=== PATIENT | female | born 1960 | race Caucasian/White ===

== ENCOUNTER 2019-12-22 05:52 | Observation (INO) | payer BC, OTHER ==
[2019-12-22] VITALS (7 sets, daily range): BP systolic 101–125; BP diastolic 52–67
[~2019-12-22] VITALS: Ht 165.1 cm; Wt 80.7 kg
[~2019-12-22 05:52] MED LIST: ASPIRIN325 MG PO; CELEBREX50 MG PO; HYDROCHLOROTHIA25 MG PO; LISINOPRIL5 MG PO; NORCO 7.5-3251 EACH PO; ULTRAM50 MG PO; VITAMIN C PO; VITAMIN D PO; WELLBUTRIN SR150 MG PO
[2019-12-22] MEDS ORDERED: GABAPENTIN 300 MG CAP ONE (07:17)
[2019-12-22] MEDS ORDERED: DEXAMETHASONE SOD PHOS 10 MG/1 ML VIAL ONE (07:17)
[2019-12-22] MEDS ORDERED: CELECOXIB 200 MG CAP ONE (07:17)
[2019-12-22] MEDS ORDERED: CEFAZOLIN SOD 1 GM/NS 50ML 100 ML IV ONE (07:18)
[2019-12-22] MEDS ORDERED: VITAMIN D PO (07:34)
[2019-12-22] MEDS ORDERED: Vitamin C PO (07:35)
[2019-12-22] MEDS ORDERED: Biotin PO (07:38)
[2019-12-22] MEDS ORDERED: Probiotic PO (07:38)
[2019-12-22] MEDS ORDERED: Ashwagandha PO (07:39)
[2019-12-22] MEDS ORDERED: Vitamin D3 PO (07:40)
[2019-12-22] MEDS ORDERED: ROPIVACAINE 246.25 MG, EPINEPHRINE HCL 1:1000 1ML 0.5 MG, CLONIDINE HCL 0.08 MG, KETORO... INJ ONE ×5 (08:00)
[2019-12-22] MEDS ORDERED: TRANEXAMIC ACID 1,000 MG/10 ML ML ONE (09:00)
[2019-12-22] MEDS ORDERED: SODIUM CHLORIDE 0.9% 500ML 500 ML ONE (09:00)
[2019-12-22] MEDS ORDERED: VANCOMYCIN HCL 1,000 MG ONE (09:00)
[2019-12-22] MEDS ORDERED: BACITRACIN 50,000 UNIT VIAL ONE (09:01)
[2019-12-22] MEDS ORDERED: ACETAMINOPHEN 650 MG SUPP PR PRN (10:45)
[2019-12-22] MEDS: SODIUM CHLORIDE 0.9% 1000ML 1,000 ML IV SCH ×2 (10:45→17:52)
[2019-12-22] MEDS ORDERED: DIPHENHYDRAMINE HCL INJ 50 MG/ML VIAL IV PRN (10:45)
[2019-12-22] MEDS ORDERED: KETOROLAC TROMETHAMINE 30 MG/ML VIAL IV PRN (10:45)
[2019-12-22] MEDS ORDERED: ONDANSETRON HCL INJ 2MG/ML 2ML 2 MG/ML VIAL IV PRN (10:45)
[2019-12-22] MEDS ORDERED: HYDROCODONE/APAP 5MG-325MG TAB PO PRN (10:45)
[2019-12-22] MEDS ORDERED: DOCUSATE SODIUM 100 MG CAP PO PRN (10:45)
[2019-12-22] MEDS ORDERED: FENTANYL CITRATE/PF 100MCG/2 ML INJ ONE (11:07)
--- NOTE | 2019-12-22 11:11 | Operative Report ---
DATE OF PROCEDURE: SURGEON: Clark Smith MD DYE WINCH OPERATOR: Arnulfo Robison, certified PA. PREOPERATIVE DIAGNOSIS: Osteoarthritis, left knee. POSTOPERATIVE DIAGNOSIS: Osteoarthritis, left knee. PROCEDURE: Left total knee arthroplasty. INDICATIONS: The patient is a 59-year-old lady, who was very active. She has advanced osteoarthritis of her left knee. She has failed extensive conservative management and would like to proceed with a left total knee replacement. She has been through a right knee replacement some years ago. The risks and benefits have been reviewed. She states she understands and wishes to proceed. PROCEDURE IN DETAIL: The patient was brought to the operating room and placed under general anesthetic. She received prophylactic antibiotics, a regional block and tranexamic acid in the holding area. Her left lower extremity was prepped and draped in a sterile manner. A preoperative time-out was performed. The extremity was exsanguinated and a proximal tourniquet was inflated to 300 mmHg. An anterior incision with a medial parapatellar arthrotomy was performed. Clear synovial fluid was removed from the joint. Soft tissue releases were performed to bring the knee up into flexion with the patella everted. Meniscal remnants, marginal osteophytes, and the cruciate ligaments were sacrificed. A [employer] knee system with ultracongruent tibial inserts were utilized. An extramedullary cutting guide was used to resect the proximal tibia. The cut was referenced off the least affected lateral compartment. The tibial base plate was a size 4. The central fin punch was impacted and attention was directed towards the distal femur. An intramedullary cutting guide was used to resect the distal femur in 6 degrees of valgus and rotation referencing off a combination of landmarks including Whitesides line, the epicondylar axis, and the posterior condyles. The femoral component was a size 5. There were some dense sclerotic bone in the medial aspect. The anterior and posterior cuts were made. Trial implant was placed. A 9 mm ultracongruent tibial insert was noted to have good stability in full extension and 90 degrees of flexion. The patella was resurfaced with a 29 mm x 9 mm patellar button. The thickness was checked before and after and was right at 23 mm. Patellar tracking was concentric. The trial implants were removed. Small drill holes were placed into the dense sclerotic bone of the medial femur. A 100 mL premixed pericapsular TORSTEN injection was placed into the surrounding soft tissue. The knee was thoroughly irrigated with a shower-tip pulsatile lavage. All bone cuts had been irrigated with a spray mixture of diluted vancomycin and polymyxin spray. The components were cemented into place using a single mix of high viscosity Biomet cement, preloaded with antibiotics. Care was taken to remove extravasated cement. The wound was further irrigated while the cement cured. The arthrotomy was then closed with interrupted #1 Ethibond. The knee was put through flexion and extension to ensure a secure closure. The skin was closed with subcuticular Vicryl and sami. A sterile Aquacel bandage was applied. The patient was extubated and transported to the recovery room in stable condition. There was no blood loss and all needle and sponge counts were correct. Clark Smith MD DR/SHAYAN /[id number]
--- NOTE | 2019-12-22 11:41 | Diagnostic Imaging Report ---
EXAMINATION: KNEE LEFT 1-2 VIEWS INDICATION: Postoperative COMPARISON: None FINDINGS: AP and lateral portable radiographs of the left knee demonstrate immediate postoperative findings of left total knee replacement. Alignment appears anatomic. No unexpected fracture. Postoperative soft tissue emphysema. Surgical skin sami in place. IMPRESSION: Expected postoperative findings status post left total knee replacement. Signed by: Shikha Ho MD on 12/22/2019 11:37 AM
[2019-12-22] MEDS ORDERED: ACETAMINOPHEN 1000 MG/100 ML IV PRN (14:00)
--- NOTE | 2019-12-22 14:28 | NUR ---
DR ERVIN OFFICE PREARRANGED FOLLOWING DISCHARGE PLAN OF: HOME [address] [address] HOME HEALTH WITH HOME CARE PROVIDERS CONFIRMED WITH [facility] [phone] DME; 3 IN ONE COMMODE,CPM AND ROLLING WALKER WITH WHEELS. PROVIDED BY [employer] [facility] [phone] CHOICE FILED IN CHART CLEAR FROM CASE MANAGEMENT FOR DISCHARGE
[2019-12-22] MEDS: ASPIRIN 325 MG TAB PO SCH (17:51)
[2019-12-22] MEDS: CELECOXIB 100 MG CAP PO SCH (17:51)
[2019-12-22] MEDS: CEFAZOLIN SOD 1 GM/NS 50ML 50 ML IV SCH (17:51)
--- NOTE | 2019-12-22 19:17 | Consultation ---
DATE OF CONSULTATION: Covering for Dr. Sal. HISTORY OF PRESENT ILLNESS: This is a 59-year-old female, who came in for left total knee replacement. The patient is in fairly good health except for osteoarthritis of the knee. The patient had a right knee replacement done today. She is status post left knee replacement. PAST MEDICAL HISTORY: History of osteoarthritis, history of hypertension, history of hyperlipidemia. She does not take any medications for hyperlipidemia. Takes hydrochlorothiazide 12.5 for hypertension. PAST SURGICAL HISTORY: History of hysterectomy, cholecystectomy, right knee surgery and left knee replacement. CURRENT MEDICATIONS: Hydrochlorothiazide and Motrin as needed. ALLERGIES: NKDA. REVIEW OF SYSTEMS: Negative for chest pain. No shortness of breath. No nausea. No vomiting. No diarrhea. No constipation. No rectal bleeding. No hematochezia. No hematemesis. No generalized weakness. No paresthesias. No hyperesthesias either. Now the patient has left knee pain, status post surgery. PHYSICAL EXAMINATION: GENERAL: The patient is alert and oriented x3 HEENT: Normocephalic and atraumatic. Pupils are reactive to light and accommodation. CVS: S1 and S2 normal. Regular rate and rhythm. ABDOMEN: Nontender and nondistended. EXTREMITIES: No clubbing. No cyanosis. No edema. Left knee status post TKA. LABORATORY VALUES: Coronavirus is nondetected. Tomorrow's lab pending. Blood type noted, she is O positive. ASSESSMENT: Bri Ashraf, status post left total knee replacement. PLAN: Continue with current management. Her blood pressure is very stable, running at 116/61. We will hold back on hydrochlorothiazide. Continue current postoperative orders. Further recommendation per clinical course. The patient is very stable, can be discharged from medical standpoint. Alejandro Olsen MD ASJ/MODL /[id number]
--- NOTE | 2019-12-22 20:10 | NUR ---
RECEIVED PT IN BED AOX3 .PT HAD TOTAL LEFT KNEE ARTHROPLASTY WITH FABIO RT FA 20G NS [id number] .CALL LIGHT WITH IN REACH CONTINUE TO MONITOR
[2019-12-22] MEDS ORDERED: ZOLPIDEM TARTRATE 5 MG TAB PO PRN (21:00)
[2019-12-22] MEDS: HYDROCODONE/APAP 7.5MG-325MG 1 EA TAB PO PRN (22:33)
[2019-12-23] VITALS: BP 91/52
[2019-12-23] MEDS: CEFAZOLIN SOD 1 GM/NS 50ML 50 ML IV SCH ×2 (01:00→08:49)
[2019-12-23 04:00] VITALS: BP 112/65
[2019-12-23] MEDS: HYDROCODONE/APAP 7.5MG-325MG 1 EA TAB PO PRN ×2 (04:13→08:49)
[2019-12-23 05:28] LABS: HEMATOCRIT 29.9 % (34.2-44.1); HEMOGLOBIN 9.7 g/dL (12.0-16.0)
[2019-12-23] MEDS: SODIUM CHLORIDE 0.9% 1000ML 1,000 ML IV SCH (06:08)
--- NOTE | 2019-12-23 06:37 | NUR ---
PT RESTED DURING THE NIGHT C/O PAIN AND GIVEN ORDERED PAIN .CONTINUE TO MONITOR
--- NOTE | 2019-12-23 07:19 | Progress Note ---
DATE: SUBJECTIVE: A 59-year-old female, status post left knee replacement, doing well. No complaints. No chest pain. No shortness of breath. Pain is controlled. OBJECTIVE: VITAL SIGNS: Temperature is 98, pulse of 67, respirations of 20, blood pressure is 112/65, and pulse oximetry 100%. HEENT: Normocephalic and atraumatic. Pupils are reactive. CVS: S1 and S2 normal. Regular rate and rhythm. ABDOMEN: Soft, nontender, and nondistended. EXTREMITIES: Left knee bandaged and no streaking. LABORATORY VALUES: Hemoglobin of 9.7 and hematocrit of 29.9. ASSESSMENT AND PLAN: Ms. Bri Ashraf with left total knee replacement, hypertension. The patient to continue current postsurgical orders. Hemoglobin is maintained and the patient's blood pressure is well maintained. We will keep her off hydrochlorothiazide for right now. The patient is cleared from medical point to be discharged. MD ANN Cantor/DIONEL /[id number]
[2019-12-23 08:32] VITALS: BP 107/68
[2019-12-23] MEDS: CELECOXIB 100 MG CAP PO SCH (08:49)
[2019-12-23] MEDS: ASPIRIN 325 MG TAB PO SCH (08:49)
[2019-12-23 09:46] VITALS: BP 107/68
--- NOTE | 2019-12-23 12:45 | NUR ---
REMOVED PATIENTS IV. CATHETER INTACT PRESSURE DRESSING APPLIED.
--- NOTE | 2019-12-23 12:48 | NUR ---
PATIENT DISCHARGED FROM FACILITY. GATHERED ALL PERSONAL BELONGINGS, NO S/S OF DISTRESS LEAVING FACILITY.
[2019-12-23] MEDS ORDERED: ONDANSETRON HCL 4 MG ORAL DISINTEGRATING TAB PO PRN (13:00)
[2019-12-23 13:08] VITALS: BP 127/64
== END 2019-12-23 12:54 | disposition home or self-care (01) ==
LOC: OR 05:52 → PACU V 10:35 → MED/SURG 12:17
PROVIDERS: ADMIT Specialist; ATTEND Specialist
DX: M17.0 Bilateral primary osteoarthritis of knee (principal); I10 Essential (primary) hypertension; Z87.891 Personal history of nicotine dependence; Z96.651 Presence of right artificial knee joint; Z11.59 Encounter for screening for other viral diseases
CPT/HCPCS: 27447; 36415; 73560; 85014; 85018; 86850; 86900; 86920; 87635; 97116 ×2; 97161; 97530; C1713; G0378 ×2; J0171; J0690 ×2; J1100; J1885 ×2; J2405; J2795; J3010; J3370; J7030 ×2; J7040